=== PATIENT | female | born 1970 | race African-American/Black ===

== ENCOUNTER 2017-08-11 02:50 | Emergency (ER) | payer MEDICAID, OTHER ==
[2017-08-11] MEDS ORDERED: ONDANSETRON 4 MG/2 ML VIAL IVP ONE (03:06)
[2017-08-11] MEDS ORDERED: LIDOCAINE 1% 150 MG in NS 100 ML IV ONE (03:07)
--- NOTE | 2017-08-11 03:25 | EDPHY ---
H & P Stated Complaint: r lq abd pain hx of ovarian cyst Time Seen by Provider: 08/11/17 02:51 HPI/ROS: HPI The patient presents with right-sided lower abdominal pain which has been present for several months though became worse tonight about 6 hr ago while at rest. The pain is dull and achy, it does not radiate, it is moderate in severity. She is [facility]. Several months ago while living in [place] she was diagnosed with right-sided ovarian cyst. Per her report, laparoscopic procedure was attempted to remove the cysts, however was unsuccessful and she was told she needed an open surgery. However, she was very fearful of this because of her history of coagulopathy and concern for developing blood clots. When she moved here, she is tablets care at [facility]. She has an appointment with OBGYN on August 28 for her ovarian cyst. She denies any medical care since arriving in [place]. However, on review of records obtained from the [facility] that she was at [facility] for an overdose on Dilantin which she took because she was depressed about her ovarian cyst pain. Also a visit 2 days ago to [facility] for right ovarian cyst pain is seen. She was given a short course of Percocet, however the patient tells me that she is not taking anything for her pain currently. REVIEW OF SYSTEMS Constitutional: No fever, no chills. Eyes: No discharge. ENT: No sore throat. Cardiovascular: No chest pain, no palpitations. Respiratory: No cough, no shortness of breath. Gastrointestinal: No abdominal pain, no vomiting. Genitourinary: No hematuria. Musculoskeletal: No back pain. Skin: No rashes. Neurological: No headache. 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, history of right ovarian cyst, hypertension, rheumatoid arthritis, depression and anxiety, PTSD Soc Hx: Currently residing at the [facility], history of cocaine use previously, currently using marijuana for her pain PHYSICAL General Appearance: Alert, tearful and uncomfortable appearing Eyes: Pupils equal and round no pallor or injection ENT, Mouth: Mucous membranes moist Respiratory: There are no retractions, lungs are clear to auscultation Cardiovascular: Regular rate and rhythm Gastrointestinal: Abdomen is soft and tender in the right lower quadrant without rebound or guarding Neurological: A&O, moves all extremities Skin: Warm and dry, no rashes Musculoskeletal: Neck is supple non tender Extremities: symmetrical, full range of motion Psychiatric: Patient is oriented X 3, there is no agitation Source: Patient, EMS, Old records Exam Limitations: No limitations - Personal History LMP (Females 10-55): Unknown Current Tetanus/Diphtheria Vaccine: No Current Tetanus Diphtheria and Acellular Pertussis (TDAP): No Tetanus Vaccine Date: >10 YRS - Medical/Surgical History Hx Asthma: No Hx Chronic Respiratory Disease: No Hx Diabetes: No Hx Cardiac Disease: No Hx Renal Disease: No Hx Cirrhosis: No Hx Alcoholism: No Hx HIV/AIDS: No Hx Splenectomy or Spleen Trauma: No Other PMH: htn, bipolar, epilepsy, chronic back pain, hysterectomy, sickle cell trait - Social History Smoking Status: Current every day smoker Constitutional: Initial Vital Signs Temperature (C) 37 C 08/11/17 03:01 Heart Rate 70 08/11/17 03:01 Respiratory Rate 18 08/11/17 03:01 Blood Pressure 166/102 H 08/11/17 03:01 O2 Sat (%) 95 08/11/17 03:01 O2 Delivery Mode Room Air Allergies/Adverse Reactions: [place] And Derivatives [citrus] Allergy (Verified 08/29/15 15:54) BREAKS OUT Home Medications: Medication Instructions Recorded Ibuprofen [Motrin (*)] 600 mg PO Q6 PRN 08/25/15 Lisinopril/Hctz 10/12.5 mg 1 ea PO DAILY 08/25/15 [Zestoretic/Prinzide 10/12.5MG (*)] Phenytoin Sodium Extended 200 mg PO DAILY 08/25/15 [Dilantin (*)] Phenytoin Sodium Extended 300 mg PO HS 08/25/15 [Dilantin (*)] QUEtiapine FUMARATE [Seroquel 50 50 mg PO HS 08/25/15 mg (*)] Coumadin 08/11/17 Lidocaine [Lidoderm] 1 each TP DAILY #10 adh..patch 08/11/17 Lovenox 08/11/17 Medical Decision Making - Diagnostics Imaging Results: Ultrasound pelvis shows 2.3 cm simple right ovarian cyst without any evidence of torsion or rupture, discussed with Dr. Coleman of Radiology. Imaging: Discussed imaging studies w/ call center coordinator Radiologist Differential Diagnosis: This is a 47-year-old female with history of right-sided ovarian cyst who presents with right lower quadrant abdominal pain, [facility] in [facility]. History is somewhat unclear, however it seems that several months ago she was diagnosed with a right ovarian cyst though declined further operative intervention because of concern for postoperative blood clot. She now is regretful about this decision and wishes that she had had an operation because of the pain that she suffers from daily. The pain did spontaneously become worse tonight and that is what has brought her into the emergency department. She declines any care here in [place] since she has moved here, however review of old records reveals that she has been seen multiple times for this. Plan for ultrasound to evaluate for ovarian torsion, basic labs, pain medication. Differential diagnosis includes ovarian torsion, ruptured ovarian cyst, simple ovarian cysts, less likely appendicitis. Ultrasound was performed which showed no signs of torsion and a rather small right-sided ovarian cyst. After 3 attempts, we were not is able to establish IV line. The patient was offered Tylenol, however refused. I gave her a lidocaine patch which she did eventually except. The patient seems quite frustrated with her pain and became very tearful when I discussed her ultrasound results with her. She says that no one is doing anything to help her. I did confront her about her ER visit 2 days ago which she initially denied. She said that she forgot that she went to the other hospital and that she got Percocet there. I suspect she may be in mild opiate withdrawal and that could be the cause of her worsening pain. She says they only gave her short course of medication. She says that she is going to stop taking all of her medications, however I do not know how clear she is on this. She says that she would like to a natural . She says she is not feeling suicidal. However, records do reveal that she had a suicide attempt by taking her Dilantin earlier in the month. She says she does not have a plan to hurt herself but is feeling very frustrated with her current situation. I have offered her mental health evaluation, though she declines. Given that she is not overtly suicidal and does not have a plan to hurt herself, she does not meet criteria for an M1 hold at this time. I have offered her consult with case management via phone in the next few days, however she refuses. She would like to [facility] to the [facility] and will be discharged. - Data Points Medications Given: Discontinued Medications Miscellaneous Medication (Icy Hot Lidocaine/Menthol 4%/1% Patch) 1 patch TD EDNOW ONE Stop: 08/11/17 04:33 Last Admin: 08/11/17 04:38 Dose: 1 patch Departure - Departure Disposition: Home, Routine, Self-Care Clinical Impression: Right ovarian cyst Condition: Good Instructions: Ovarian Cyst (ED) Additional Instructions: I recommend that you follow up with the OBGYN listed below. You should return to the emergency department if your feeling unsafe or worse in any way. Referrals: Edward Pelletier MD [Medical Doctor] - As per Instructions Prescriptions: Lidocaine [Lidoderm] 1 each TP DAILY #10 adh..patch
[2017-08-11] MEDS ORDERED: ACETAMINOPHEN 500 MG TAB PO ONE (03:50)
[2017-08-11] MEDS ORDERED: LIDOCAINE 4%/MENTHOL 1% PATCH TD ONE (04:32)
[2017-08-11 05:15] VITALS: BP 146/101
[2017-08-11] MEDS ORDERED: PATCH REMOVAL 1 EA PATCH TD SCH (21:00)
== END 2017-08-11 05:18 | disposition home or self-care (01) ==
LOC: EDUNIT#
DX: N83.201 Unspecified ovarian cyst, right side (principal); I10 Essential (primary) hypertension; F17.200 Nicotine dependence, unspecified, uncomplicated; Z79.01 Long term (current) use of anticoagulants